=== PATIENT | female | born 1985 | race American Indian/Alaskan Native ===

== ENCOUNTER 2018-11-21 01:15 | Emergency (ER) | payer SELFPAY ==
[2018-11-21 01:29] VITALS: BP 147/103
== END 2018-11-21 02:35 | disposition left against medical advice (07) ==
LOC: ED 01:15
DX: H57.89 Other specified disorders of eye and adnexa (principal); Z53.21 Procedure and treatment not carried out due to patient leaving prior to being seen by health care provider